=== PATIENT | female | born 2000 | race Caucasian/White ===

== ENCOUNTER 2018-12-24 16:42 | Emergency (ER) | payer OTHER ==
[~2018-12-24] VITALS: Ht 162.6 cm; Wt 56.8 kg
[2018-12-24 17:00] VITALS: BP 106/72
[2018-12-24] MEDS ORDERED: POVIDONE-IODINE 10% 120 ML SOLUTION TP ONE (17:15)
[2018-12-24] MEDS ORDERED: IBUPROFEN 800 MG TABLET PO ONE (17:15)
[2018-12-24] MEDS ORDERED: PERTUSS(ACELL),DIPH,TET VAC/PF 0.5 ML VIAL IM ONE (17:15)
== END 2018-12-24 18:04 | disposition home or self-care (01) ==
LOC: EMS 16:45
DX: S61.011A Laceration without foreign body of right thumb without damage to nail, initial encounter (principal); S61.012A Laceration without foreign body of left thumb without damage to nail, initial encounter; J45.909 Unspecified asthma, uncomplicated; W45.8XXA Other foreign body or object entering through skin, initial encounter; Y93.89 Activity, other specified; Y92.89 Other specified places as the place of occurrence of the external cause; Y99.8 Other external cause status
CPT/HCPCS: 90471; 90715